=== PATIENT | female | born 1995 | race Two or more races ===

== ENCOUNTER 2020-10-12 08:00 | Outpatient (CLI) | payer OTHER | END 2020-10-12 08:30 | disposition home or self-care (01) | LOC: PPH VACUNA 08:00 | DX: Z23 Encounter for immunization (principal) ==

== ENCOUNTER 2020-10-29 17:02 | Inpatient (IN) | payer OTHER ==
[~2020-10-29] VITALS: Ht 157.5 cm; Wt 2.7 kg
[2020-10-29] MEDS ORDERED: SYNTHROID88 MCG PO (17:33)
[2020-10-29] MEDS ORDERED: LABETALOL HCL100 MG PO (17:34)
[2020-10-29] MEDS ORDERED: ADULT LOW DOSE81 M1 PO (17:34)
[2020-10-29] MEDS ORDERED: PRENATABS RX T1 EACH PO (17:35)
[2020-12-02] MEDS ORDERED: LABETALOL HCL100 MG PO (12:31)
[2020-12-02] MEDS ORDERED: LEVOTHYROXINE88 MCG PO (12:31)
[2020-12-02] MEDS ORDERED: IBUPROFEN600 MG PO (12:31)
== END 2020-12-02 15:19 | disposition home or self-care (01) | DRG 788 ==
LOC: OB/GYN 17:02 → LDR 17:02 → OB/GYN 10-30 15:50
PROVIDERS: ADMIT Obstetrics & Gynecology; ATTEND Obstetrics & Gynecology
PROC: 4A1HXFZ Monitoring of Products of Conception, Cardiac Rhythm, External Approach (ICD-10-PCS; 2020-10-29)
PROC: BY4FZZZ Ultrasonography of Third Trimester, Single Fetus (ICD-10-PCS; 2020-10-30)
PROC: BY4FZZZ Ultrasonography of Third Trimester, Single Fetus (ICD-10-PCS; 2020-11-23)
PROC: 10D00Z1 Extraction of Products of Conception, Low, Open Approach (ICD-10-PCS; principal; 2020-11-29 17:00)
DX: O11.4 Pre-existing hypertension with pre-eclampsia, complicating childbirth (principal); O62.1 Secondary uterine inertia; O10.02 Pre-existing essential hypertension complicating childbirth; O99.284 Endocrine, nutritional and metabolic diseases complicating childbirth; E03.9 Hypothyroidism, unspecified; Z3A.33 33 weeks gestation of pregnancy; Z37.0 Single live birth; Z20.822 Contact with and (suspected) exposure to COVID-19